=== PATIENT | male | born 1995 | race Caucasian/White ===

== ENCOUNTER 2017-05-21 02:42 | Emergency (ER) | payer BC ==
[~2017-05-21] VITALS: Ht 167.6 cm; Wt 103.4 kg
[2017-05-21] MEDS ORDERED: LET TOPICAL SOLUTION 8 ML UDC TOP ONE (03:15)
[2017-05-21] MEDS ORDERED: ONDANSETRON 4 MG/2 ML VIAL IV ONE (03:15)
[2017-05-21] MEDS ORDERED: LIDOCAINE HCL 2% 20 ML VIAL TP ONE (03:15)
[2017-05-21] MEDS ORDERED: HYDROMORPHONE 1 MG/1 ML DISP.SYRIN IV ONE (03:15)
[2017-05-21] MEDS ORDERED: ONDANSETRON 4 MG/2 ML VIAL ONE (03:34)
[2017-05-21] MEDS ORDERED: HYDROMORPHONE 2 MG/1 ML DISP.SYRIN ONE (03:34)
[2017-05-21] MEDS ORDERED: LIDOCAINE HCL 2% 20 ML VIAL ONE (03:34)
[2017-05-21] MEDS ORDERED: LET TOPICAL SOLUTION 8 ML UDC ONE (03:34)
--- NOTE | 2017-05-21 05:39 | NUR ---
Patient discharged to home in stable conditon. Written and verbal after care instructions given. Patient verbalizes understanding of instructions.
== END 2017-05-21 05:47 | disposition home or self-care (01) ==
LOC: ER 02:43
DX: L05.01 Pilonidal cyst with abscess (principal); J45.909 Unspecified asthma, uncomplicated; Z88.8 Allergy status to other drugs, medicaments and biological substances
CPT/HCPCS: 36415; 86403; 87070; A4663; J1170; J2405; J3490

== ENCOUNTER 2017-05-24 22:26 | Emergency (ER) | payer BC, MEDICAID ==
[~2017-05-24] VITALS: Ht 167.6 cm; Wt 103.4 kg
--- NOTE | 2017-05-24 23:05 | NUR ---
Patient discharged to home in stable conditon. Written and verbal after care instructions given. Patient verbalizes understanding of instructions.
== END 2017-05-24 23:07 | disposition home or self-care (01) ==
LOC: ER 22:27
DX: Z48.01 Encounter for change or removal of surgical wound dressing (principal); Z88.8 Allergy status to other drugs, medicaments and biological substances

== ENCOUNTER 2017-06-07 21:03 | Emergency (ER) | payer MEDICAID ==
[~2017-06-07] VITALS: Ht 167.6 cm; Wt 103.4 kg
--- NOTE | 2017-06-07 22:54 | NUR ---
MSE COMPLETED, PT D/C'D HOME, ACI/RX X1 GIVEN. PT AMBULATED W/O DIFF/TOOK ALL BELONGINGS.
[2017-06-07 22:56] VITALS: BP 147/78
== END 2017-06-07 22:57 | disposition home or self-care (01) ==
LOC: ER 21:04
DX: L05.91 Pilonidal cyst without abscess (principal); G47.00 Insomnia, unspecified; J45.909 Unspecified asthma, uncomplicated; Z88.8 Allergy status to other drugs, medicaments and biological substances
CPT/HCPCS: A4663